=== PATIENT | female | born 1975 | race Hispanic/Latino ===

== ENCOUNTER 2017-07-23 17:53 | Emergency (ER) | payer OTHER ==
[2017-07-23 17:53] VITALS: BMI 34.7
[2017-07-23] MEDS ORDERED: Oxycodone/Acetaminophen 5/325 mg Tab PO STA (18:20)
--- NOTE | 2017-07-23 18:22 | C.PDOC ---
History Of Present Illness 41 year old female presents to ED with complaints of pain to right second toe digit after she injured it on edge of desk yesterday. Patient states she had mopped floor and when walking bare foot, area still wet and slipped stubbing the toe. She reports taking Tylenol and Advil yesterday and today without significant relief. She noticed bruising today and more swelling. Time Seen by Provider: 07/23/17 18:15 Chief Complaint (Nursing): Lower Extremity Problem/Injury History Per: Patient History/Exam Limitations: no limitations Onset/Duration Of Symptoms: Days Current Symptoms Are (Timing): Still Present Past Medical History Reviewed: Historical Data, Nursing Documentation, Vital Signs Vital Signs: Last Vital Signs Temp 97.9 F 07/23/17 18:57 Pulse 81 07/23/17 18:57 Resp 16 07/23/17 18:57 BP 129/88 07/23/17 18:57 Pulse Ox 100 07/23/17 19:10 - Medical History PMH: Anxiety, Asthma, Bipolar Disorder, Depression Surgical History: Cholecystectomy Family History: States: No Known Family Hx - Social History Hx Tobacco Use: Yes Hx Alcohol Use: No Hx Substance Use: No - Immunization History Hx Tetanus Toxoid Vaccination: Yes Hx Influenza Vaccination: No Hx Pneumococcal Vaccination: No Review Of Systems Musculoskeletal: Positive for: Foot Pain. Negative for: Leg Pain Skin: Positive for: Bruising. Negative for: Rash Neurological: Negative for: Weakness, Numbness Physical Exam - Physical Exam Appears: Non-toxic, No Acute Distress Skin: Warm, Dry, No Rash Head: Atraumatic, Normacephalic Eye(s): bilateral: Normal Inspection Oral Mucosa: Moist Neck: Normal ROM Extremity: Normal ROM, No Calf Tenderness, Capillary Refill (<2 seconds), No Deformity, Other (Right foot second toe digit moderate swelling tenderness to PIP and ecchymosis, swelling extends into dorsum of foot at base of toe) Pulses: Right Dorsalis Pedis: Normal Neurological/Psych: Oriented x3, Normal Speech Gait: Steady ED Course And Treatment O2 Sat by Pulse Oximetry: 100 (RA) Pulse Ox Interpretation: Normal Medical Decision Making Medical Decision Making: Impression: toe injury Plan: * Xray toe digit * Patient requested percocet for pain Progress: XRay shows fracture to head of proximal phalanx second toe digit Ernie tape and ortho shoe applied RE-Eval: Patient reports pain improving. Advised to follow up with assistant finance director. She asks for Rx Ventolin needs her refill Disposition Counseled Patient/Family Regarding: Diagnosis, Need For Followup, Rx Given - Disposition Referrals: Taya Storey DPM [Staff Provider] - Disposition: HOME/ ROUTINE Disposition Time: 18:54 Condition: GOOD Additional Instructions: Your xray shows toe fracture. It is very important you follow up with podiatry within 1-4 days. Take pain medicine as needed Prescriptions: Albuterol HFA [Ventolin HFA 90 mcg/actuation (8 g)] 1 puff IH Q4 #1 puff Ibuprofen [Motrin] 600 mg PO Q8 #30 tab oxyCODONE/Acetaminophen [Percocet 5/325 mg Tab] 1 tab PO Q12 #10 tab Instructions: Toe Fracture (DC) Forms: [facility] (Macedonian), Work Excuse - POA Present On Arrival: Falls Or Trauma (toe fx) - Clinical Impression Clinical Impression: Fracture of toe - PA / SPOT WELDER / Resident Statement MD/DO has reviewed & agrees with the documentation as recorded. - Scribe Statement The provider has reviewed the documentation as recorded by the Taurus Washburn All medical record entries made by the Taurus were at my direction and personally dictated by me. I have reviewed the chart and agree that the record accurately reflects my personal performance of the history, physical exam, medical decision making, and the department course for this patient. I have also personally directed, reviewed, and agree with the discharge instructions and disposition.
[2017-07-23 18:57] VITALS: BP 129/88; PULSE 81; RESP 16; TEMP 97.9; O2SAT 100
--- NOTE | 2017-07-24 10:41 | RAD ---
PROCEDURE: HISTORY: pain, swelling, brusing toe after injury COMPARISON: None TECHNIQUE: Three views FINDINGS: On the slightly oblique view, cortical offset consistent with a 2nd proximal phalangeal distal fracture needs to be considered. There is overlying soft tissue swelling. There is some confounding fold of likely plantar pad soft tissues adding to this accentuation of the "Offset" . No significant appearing displacement. No intra-articular extension appreciated IMPRESSION: Nondisplaced fracture and digit proximal phalanx - distal aspect. No intra articular extension appreciated. Overlying soft tissue swelling
== END 2017-07-23 19:25 | disposition home or self-care (01) ==
LOC: C.ER 17:53
DX: S92.511A Displaced fracture of proximal phalanx of right lesser toe(s), initial encounter for closed fracture (principal); W01.190A Fall on same level from slipping, tripping and stumbling with subsequent striking against furniture, initial encounter; Y92.009 Unspecified place in unspecified non-institutional (private) residence as the place of occurrence of the external cause

== ENCOUNTER 2017-08-21 13:25 | Emergency (ER) | payer OTHER ==
[2017-08-21 13:25] VITALS: BMI 34.7
[2017-08-21 13:32] VITALS: BP 116/76; PULSE 82; RESP 20; TEMP 97.9; O2SAT 98
--- NOTE | 2017-08-21 14:26 | C.PDOC ---
History Of Present Illness 42 y/o female presents to the ED complaining of sore throat and swollen glands for 2 days. She denies any chills, body aches, cough, nausea, or vomiting. Patient does report tactile fever. Time Seen by Provider: 08/21/17 13:37 Chief Complaint (Nursing): ENT Problem History Per: Patient History/Exam Limitations: None Onset/Duration Of Symptoms: Days Current Symptoms Are (Timing): Still Present Past Medical History Reviewed: Historical Data, Nursing Documentation, Vital Signs Vital Signs: Last Vital Signs Temp 97.9 F 08/21/17 13:28 Pulse 82 08/21/17 13:28 Resp 20 08/21/17 13:28 BP 116/76 08/21/17 13:28 Pulse Ox 98 08/21/17 14:31 - Medical History PMH: Anxiety, Asthma, Bipolar Disorder, Depression Surgical History: Cholecystectomy Family History: States: Unknown Family Hx - Social History Hx Tobacco Use: Yes Hx Alcohol Use: No Hx Substance Use: No - Immunization History Hx Tetanus Toxoid Vaccination: Yes Hx Influenza Vaccination: No Hx Pneumococcal Vaccination: No Review Of Systems Except As Marked, All Systems Reviewed And Found Negative. ENT: Positive for: Throat Pain Physical Exam - Physical Exam Appears: Non-toxic, No Acute Distress Skin: Normal Color, Warm, Dry Head: Atraumatic, Normacephalic Eye(s): bilateral: Normal Inspection Nose: Normal Oral Mucosa: Moist Throat: Erythema (Tonsillar erythema and hypertrophy), Exudate Neck: Normal ROM Lymphatic: Adenopathy (cervical lymphadenopathy bilaterally, tender to palpation ) Cardiovascular: Rhythm Regular, No Murmur Respiratory: Normal Breath Sounds, No Rales, No Rhonchi, No Wheezing Neurological/Psych: Oriented x3 ED Course And Treatment O2 Sat by Pulse Oximetry: 98 (RA) Pulse Ox Interpretation: Normal Medical Decision Making Medical Decision Making: Impression: Pharyngitis Plan: --Motrin 600 mg PO --Zithromax 500 mg PO Patient is stable for d/c home. Provided prescriptions for Naprosyn and Zithro. Counseled regarding diagnosis and treatment plan. Advised to follow up with primary doctor in 1-2 days. Disposition Counseled Patient/Family Regarding: Studies Performed, Diagnosis, Need For Followup, Rx Given - Disposition Referrals: Monica Barry MD [Staff Provider] - Disposition Time: 14:24 Condition: STABLE Additional Instructions: follow up with Dr. April barry or your family doctor in 2 days call to make an appointment take medications as prescribed return to ER if symptoms worsens or progress Prescriptions: Azithromycin [Zithromax] 250 mg PO DAILY #4 tab Famotidine [Pepcid] 20 mg PO BID #20 tab Naproxen [Naprosyn] 500 mg PO BID PRN #16 tab PRN Reason: Pain, Moderate (4-7) Instructions: Sore Throat, Adult (DC) Forms: General Discharge Instructions, [facility] (Tuvaluan), Work Excuse - POA Present On Arrival: None - Clinical Impression Clinical Impression: Pharyngitis - Scribe Statement The provider has reviewed the documentation as recorded by the Scribe (Aurea Chan) Provider Attestation: All medical record entries made by the Scribe were at my direction and personally dictated by me. I have reviewed the chart and agree that the record accurately reflects my personal performance of the history, physical exam, medical decision making, and the department course for this patient. I have also personally directed, reviewed, and agree with the discharge instructions and disposition.
== END 2017-08-21 14:38 | disposition home or self-care (01) ==
LOC: C.ER 13:25
DX: J02.9 Acute pharyngitis, unspecified (principal)